=== PATIENT | male | born 1990 | race Hispanic/Latino ===

== ENCOUNTER 2020-07-19 00:19 | Emergency (ER) | payer BC ==
[2020-07-19] MEDS ORDERED: Ketorolac Tromethamine 30 MG/ML VIAL ONE (01:48)
[2020-07-19] MEDS ORDERED: Metoclopramide HCl 10 MG/2 ML VIAL ONE (01:48)
--- NOTE | 2020-07-19 07:42 | CT ---
CT Brain WO Con History: Headache Comparison: CT brain 2016 Findings: No acute hemorrhage or infarct. Enlarged cisterna magna. Calvarium is intact. Paranasal sin uses and mastoids are clear. Impression: No acute intracranial abnormality. Findings and impression are concordant with the initia l report.
== END 2020-07-19 03:25 | disposition home or self-care (01) ==
LOC: ERS 00:19
DX: R51.9 Headache, unspecified (principal); Z87.891 Personal history of nicotine dependence
CPT/HCPCS: 70450; 96374; 96375; J1885; J2765